=== PATIENT | female | born 1985 ===

== ENCOUNTER 2017-04-16 20:00 | Emergency (ER) | payer SELFPAY ==
[2017-04-16] MEDS ORDERED: Famotidine TAB* 20 MG PO ONE (20:17)
[2017-04-16] MEDS ORDERED: methylPREDNISolone 125 MG* 2 ML VIAL IM ONE (20:17)
[2017-04-16] MEDS ORDERED: diPHENhydraMINE PO* 50 MG PO ONE (20:17)
--- NOTE | 2017-04-16 20:45 | UC ---
Allergic Reaction HPI - HPI Summary HPI Summary: Woke with itchy hives on back, legs, neck, and abd today. Has had hives to medications before, but denies any new medications (or new formulations of her old medications). Some sensation heartburn all day, denies vomiting, fainting, trouble breathing, tongue swelling, or cough. - History of Current Complaint Chief Complaint: UCAllergicReaction Stated Complaint: WELTS,CHEST PAIN,POSS ALLERGIC REACTION Time Seen by Provider: 04/16/17 20:08 Hx Obtained From: Patient Hx Last Menstrual Period: 3 WEEKS AGO ?: No Onset/Duration: Sudden Onset, Lasting Hours Severity Initially: Moderate Severity Currently: Moderate Location: Diffuse Character: Hives Aggrevating Factor(s): Nothing Alleviating Factor(s): Nothing Associated Signs And Symptoms: Positive: Rash - Related Hx Possible Reaction To: Environmental Exposure - lives in [place], [place] visiting [place] - Allergies/Home Medications Allergies/Adverse Reactions: Allergies Allergy/AdvReac Type Severity Reaction Status Date / Time Hydrocodone Allergy Severe HIVES, Verified 04/16/17 20:10 SWELLING Minocycline Allergy Severe HIVES, Verified 04/16/17 20:10 SWELLING Home Medications: Home Medications Cholecalciferol TAB* [Vitamin D TAB*] 04/16/17 [History] Hydroxychloroquine TAB* [Plaquenil TAB*] 2 tab PO DAILY 04/16/17 [History Confirmed 04/16/17] Norgestimate-Eth Estradiol(NF) [Ortho Tri-Cyclen (NF)] 1 tab PO DAILY 04/16/17 [ History Confirmed 04/16/17] diPHENhydraMINE PO* [Benadryl PO 25 MG TAB*] 25 mg PO ONCE PRN 04/16/17 [ History Confirmed 04/16/17] PMH/Surg Hx/FS Hx/Imm Hx Previously Healthy: No - pt has lupus - Surgical History Surgical History: Yes Surgery Procedure, Year, and Place: 2010, BRACHIOPLASTY BILAT ARMS 2015 - Family History Known Family History: Negative: Blood Disorder - Social History Lives: With Family Alcohol Use: Weekly Alcohol Amount: 3 GLASSES WINE/WEEK Substance Use Type: None Smoking Status (MU): Never Smoked Tobacco Review of Systems Constitutional: Negative Skin: Rash Eyes: Negative ENT: Negative Respiratory: Negative Cardiovascular: Negative Gastrointestinal: Negative Genitourinary: Negative Motor: Negative Neurovascular: Negative Musculoskeletal: Negative Neurological: Negative Psychological: Negative All Other Systems Reviewed And Are Negative: Yes Physical Exam Triage Information Reviewed: Yes Appearance: Well-Appearing, Obese Vital Signs: Initial Vital Signs Temp 99.4 F 04/16/17 20:07 Pulse 87 04/16/17 20:07 Resp 16 04/16/17 20:07 BP 140/98 04/16/17 20:07 Pulse Ox 100 04/16/17 20:07 Vital Signs Reviewed: Yes Eye Exam: Normal, Other - PERRL Eyes: Positive: Conjunctiva Clear ENT Exam: Normal ENT: Positive: Normal ENT inspection, Hearing grossly normal, Pharynx normal, TMs normal, Other: - oropharynx widely patent. Negative: Pharyngeal erythema, Nasal congestion, Tonsillar swelling Dental Exam: Normal Neck exam: Normal Neck: Positive: Supple, Nontender, No Lymphadenopathy Respiratory Exam: Normal Respiratory: Positive: Chest non-tender, Lungs clear, Normal breath sounds, No respiratory distress, No accessory muscle use Cardiovascular Exam: Normal Cardiovascular: Positive: RRR, No Murmur Abdomen Description: Positive: Soft. Negative: CVA Tenderness (R), CVA Tenderness (L) Musculoskeletal Exam: Normal Neurological Exam: Normal Neurological: Positive: Alert Psychological Exam: Normal Skin Exam: Other - urticaria on back, posterior legs, neck, abd Allergic Reaction Course/Dx - Differential Dx/Diagnosis Differential Diagnosis/HQI/PQRI: Anaphylaxis, Angioedema, Local Allergic Reaction, Urticaria Provider Diagnoses: urticaria Discharge - Discharge Plan Condition: Stable Disposition: HOME Prescriptions: Cetirizine* [ZyrTEC 10 MG TAB*] 10 mg PO DAILY #30 tab Famotidine [Pepcid] 40 mg PO DAILY #14 tab predniSONE TAB* [Deltasone TAB*] 10 mg PO DAILY #45 tab Patient Education Materials: Urticaria (ED) Additional Instructions: In addition to the daily cetirizine (in the morning), I recommend you take 2 additional doses of diphenhydramine per day for the first 5 days. Take 1-2 25mg pills in the afternoon and take another 1-2 pills at bedtime. Please discuss your prednisone taper with your gypsum block setter to make sure it does not need to be slower.
== END 2017-04-16 20:55 | disposition home or self-care (01) ==
LOC: UCEAST 20:00
DX: L50.9 Urticaria, unspecified (principal); M32.9 Systemic lupus erythematosus, unspecified
CPT/HCPCS: 96372; 99202; A9270-GY; G0463; J2930